=== PATIENT | female | born 1995 | race African-American/Black ===

== ENCOUNTER 2020-09-15 20:04 | Emergency (ER) | payer BC, SELFPAY ==
[2020-09-15 20:06] VITALS: BP 131/89; PULSE 120; RESP 17; TEMP 35.9; O2SAT 99
[2020-09-15 20:08] VITALS: BP 131/89; PULSE 120; RESP 17; TEMP 35.9; O2SAT 99
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
[2020-09-15 20:57] VITALS: BP 126/84; PULSE 78; RESP 18; TEMP 36.3; O2SAT 98
== END 2020-09-15 20:58 | disposition home or self-care (01) ==
PROVIDERS: Emergency Provider Emergency Medicine
DX: H93.13 Tinnitus, bilateral (principal); V48.5XXA Car driver injured in noncollision transport accident in traffic accident, initial encounter
CPT/HCPCS: 99282